=== PATIENT | female | born 1995 | race African-American/Black ===

== ENCOUNTER 2022-07-19 17:23 | Emergency (ER) | payer OTHER ==
[~2022-07-19] VITALS: Ht 160 cm; Wt 94.5 kg
[~2022-07-19 17:23] MED LIST: PEN-VEE K500 MG PO
[2022-07-19 17:35] VITALS: TEMP 98.3
[2022-07-19] MEDS ORDERED: CILOXAN 10 ML10 ML OT (18:58)
[2022-07-19 19:21] VITALS: BP 130/78; PULSE 65
== END 2022-07-19 19:21 | disposition home or self-care (01) ==
LOC: COL.ER 17:23
DX: H60.92 Unspecified otitis externa, left ear (principal)